=== PATIENT | female | born 1970 | race African-American/Black ===

== ENCOUNTER 2017-05-08 05:06 | Inpatient (IN) | payer OTHER ==
[~2017-05-08] VITALS: Ht 149.9 cm; Wt 59.0 kg
[2017-05-08 06:05] LABS: Eosinophils # (auto) 0.1 uL; Eosinophils % (auto) 1.1 % (0.0-7.0); Lymphocytes # (auto) 1.1 uL; Lymphocytes % (auto) 12.1 % (10.0-50.0); Monocytes # (auto) 0.6 uL; Neutrophils # (auto) 6.9 uL; White Blood Cell 8.7 10^3/uL (4.4-10.8)
[2017-05-08 06:08] LABS: Basophils # (auto) 0.1 uL; Basophils % (auto) 0.7 % (0.0-2.0); Hematocrit 34.7 % (36.0-46.0); Mean Corpuscular Hgb Conc. 31.8 g/dL (32.0-36.0); Mean Corpuscular Volume 81.9 fL (80.0-100.0); Monocytes % (auto) 7.3 % (0.0-12.0); Neutrophils % (auto) 78.8 % (37.0-80.0); Platelet Count (auto) 287 10^3/uL (140-450); Red Blood Cells 4.24 10^6/uL (4.0-5.20); Red Cell Distribution Width 15.7 % (11.8-14.3)
[2017-05-08 06:24] LABS: Alanine Aminotransferase 30 U/L (13-56); Albumin 3.3 g/dL (3.4-5.0); Anion Gap 7 (5-15); Aspartate Aminotransferase 18 U/L (15-37); BUN/Creatinine Ratio 18.1; Blood Alcohol < 3.0 mg/dL (0-5); Blood Urea Nitrogen 21 mg/dL (7-18); Calcium 8.4 mg/dL (8.5-10.1); Carbon Dioxide 25 mmol/L (21-32); Chloride 105 mmol/L (98-107); GFR African American 64 mL/min; GFR Non-African American 53 mL/min; Glucose 98 mg/dL (74-106); Potassium 3.5 mmol/L (3.5-5.1); Sodium 137 mmol/L (136-145)
[2017-05-08 06:29] LABS: Alkaline Phosphatase 78 U/L (45-117); Bilirubin, Total 0.1 mg/dL (0.2-1.0); Total Protein 6.7 g/dL (6.4-8.2)
[2017-05-08 07:26] LABS: Alcohol, Urine < 3.0 mg/dL (0-5); Amphetamine Screen, Urine NEGATIVE (NEGATIVE); Barbiturate Scree,Urine NEGATIVE (NEGATIVE); Benzodiazephine Screen, Urine NEGATIVE (NEGATIVE); Cannabinoid Screen, Urine NEGATIVE (NEGATIVE); Cocaine Screen, Urine POSITIVE (NEGATIVE); Opiate Scree,Urine NEGATIVE (NEGATIVE); Phencyclidine Screen, Urine NEGATIVE (NEGATIVE)
[2017-05-08 07:33] LABS: Urine Bacteria None Seen /hpf (None Seen); Urine WBC None Seen /hpf (0 - 5)
[2017-05-08 08:16] LABS: Urine Specific Gravity 1.012 (1.001-1.035)
[2017-05-08 08:17] LABS: Urine Blood Normal /uL (Negative)
[2017-05-08] MEDS ORDERED: LABETALOL HCL 5 MG/ML ML 20ML VIAL IV PRN (09:30)
[2017-05-08] MEDS ORDERED: NITROGLYCERIN 0.4 MG SL TAB SL PRN (09:30)
[2017-05-08] MEDS ORDERED: MORPHINE SULF INJ 2 MG/ML SYRINGE 1ML IV PRN ×2 (09:30)
[2017-05-08] MEDS ORDERED: LORazepam 2MG/ML-1ML VIAL IV PRN (09:30)
[2017-05-08] MEDS ORDERED: ONDANSETRON HCL 4 MG/2 ML VIAL IV PRN (09:30)
[2017-05-08] MEDS ORDERED: MORPHINE SULFATE 10 MG/ML INJ 1ML SDV IV PRN (09:45)
[2017-05-08] MEDS: ASPirin 81 mg TAB PO SCH (10:24)
[2017-05-08] MEDS: METOPROLOL TARTRATE 25 MG TAB PO SCH ×2 (10:24→21:46)
[2017-05-08] MEDS: amLODIPine BESYLATE 5 MG TAB PO SCH (10:28)
[2017-05-08] MEDS: NITROGLYCERIN 0.2MG/HR TOPICAL PATCH TD SCH (10:28)
[2017-05-08] MEDS: ATORVASTATIN 20 MG TAB PO SCH (21:46)
[2017-05-08 22:00] VITALS: BP 146/71
[2017-05-09 05:00] VITALS: BP 141/74
[2017-05-09 05:54] LABS: Basophils # (auto) 0 uL; Eosinophils # (auto) 0.1 uL; Lymphocytes # (auto) 1.6 uL; Lymphocytes % (auto) 18.4 % (10.0-50.0)
[2017-05-09 05:57] LABS: Basophils % (auto) 0.5 % (0.0-2.0); Eosinophils % (auto) 1.1 % (0.0-7.0); Hematocrit 33.9 % (36.0-46.0); Hemoglobin 10.7 g/dL (12.2-16.2); Mean Corpuscular Hemoglobin 25.8 pg (28.0-32.0); Mean Corpuscular Hgb Conc. 31.6 g/dL (32.0-36.0); Mean Corpuscular Volume 81.7 fL (80.0-100.0); Monocytes # (auto) 0.7 uL; Monocytes % (auto) 8.5 % (0.0-12.0); Neutrophils # (auto) 6.1 uL; Neutrophils % (auto) 71.5 % (37.0-80.0); Nucleated Red Blood Cells % 0.1 %; Platelet Count (auto) 279 10^3/uL (140-450); Red Blood Cells 4.15 10^6/uL (4.0-5.20); Red Cell Distribution Width 15.7 % (11.8-14.3); White Blood Cell 8.5 10^3/uL (4.4-10.8)
[2017-05-09 06:23] LABS: BUN/Creatinine Ratio 18.8; Calcium 8.5 mg/dL (8.5-10.1); Potassium 3.8 mmol/L (3.5-5.1)
[2017-05-09] MEDS: HYDROcodone-ACET 5/325MG TAB PO PRN ×2 (07:56→16:29)
[2017-05-09 08:00] VITALS: BP 140/86
[2017-05-09] MEDS ORDERED: ADENOSINE 50 MG in GIVE UN-DILUTED 0 ML IV ONE (08:45)
[2017-05-09 09:00] VITALS: BP 140/86
[2017-05-09 09:47] VITALS: BP 155/90
[2017-05-09] MEDS: NITROGLYCERIN 0.2MG/HR TOPICAL PATCH TD SCH (10:00)
[2017-05-09] MEDS: ASPirin 81 mg TAB PO SCH (11:17)
[2017-05-09] MEDS: METOPROLOL TARTRATE 25 MG TAB PO SCH ×2 (11:18→22:07)
[2017-05-09] MEDS: amLODIPine BESYLATE 5 MG TAB PO SCH (11:19)
[2017-05-09 13:00] VITALS: BP 186/95
[2017-05-09] MEDS ORDERED: MET25T (14:13)
[2017-05-09 17:00] VITALS: BP 149/74
[2017-05-09] MEDS: ATORVASTATIN 20 MG TAB PO SCH (22:08)
[2017-05-10 00:18] VITALS: BP 136/66
[2017-05-10 05:00] VITALS: BP 148/87
[2017-05-10 06:33] LABS: Basophils # (auto) 0 uL; Basophils % (auto) 0.6 % (0.0-2.0); Eosinophils # (auto) 0.1 uL; Hematocrit 33.8 % (36.0-46.0); Hemoglobin 10.7 g/dL (12.2-16.2); Lymphocytes # (auto) 1.9 uL; Lymphocytes % (auto) 28.1 % (10.0-50.0); Mean Corpuscular Hemoglobin 26.1 pg (28.0-32.0); Mean Corpuscular Hgb Conc. 31.7 g/dL (32.0-36.0); Mean Corpuscular Volume 82.4 fL (80.0-100.0); Monocytes # (auto) 0.6 uL; Monocytes % (auto) 9.2 % (0.0-12.0); Neutrophils % (auto) 60.1 % (37.0-80.0); Platelet Count (auto) 266 10^3/uL (140-450); Red Blood Cells 4.11 10^6/uL (4.0-5.20); Red Cell Distribution Width 15.7 % (11.8-14.3); White Blood Cell 6.7 10^3/uL (4.4-10.8)
[2017-05-10 07:21] LABS: Albumin 3.1 g/dL (3.4-5.0); Bilirubin, Total 0.3 mg/dL (0.2-1.0); Calcium 8.2 mg/dL (8.5-10.1); Potassium 4.3 mmol/L (3.5-5.1); Total Protein 6.5 g/dL (6.4-8.2)
[2017-05-10 08:00] VITALS: BP 153/79
[2017-05-10 08:36] VITALS: BP 153/79
[2017-05-10] MEDS: ASPirin 81 mg TAB PO SCH (09:20)
[2017-05-10] MEDS: METOPROLOL TARTRATE 25 MG TAB PO SCH (09:20)
[2017-05-10] MEDS: NITROGLYCERIN 0.2MG/HR TOPICAL PATCH TD SCH (09:21)
[2017-05-10] MEDS: amLODIPine BESYLATE 5 MG TAB PO SCH (09:21)
[2017-05-10] MEDS: HYDROcodone-ACET 5/325MG TAB PO PRN (09:26)
[2017-05-10 10:02] VITALS: BP 153/79
[2017-05-10] MEDS ORDERED: BOOST PLUS 8 ounce PO SCH (12:00)
== END 2017-05-10 16:50 | disposition home or self-care (01) | DRG 194 ==
LOC: EDBD 05:06 → EDUNIT# 05:06 → ER 05:10 → TELE 05:11 → TELE-WESTW 19:00
PROVIDERS: ADMIT Internal Medicine; ATTEND Internal Medicine
DX: I13.0 Hypertensive heart and chronic kidney disease with heart failure and stage 1 through stage 4 chronic kidney disease, or unspecified chronic kidney disease (principal); I21.4 Non-ST elevation (NSTEMI) myocardial infarction; G92 Toxic encephalopathy; E44.0 Moderate protein-calorie malnutrition; D50.9 Iron deficiency anemia, unspecified; J44.9 Chronic obstructive pulmonary disease, unspecified; D63.1 Anemia in chronic kidney disease; F14.10 Cocaine abuse, uncomplicated; I50.32 Chronic diastolic (congestive) heart failure; N18.2 Chronic kidney disease, stage 2 (mild); F12.90 Cannabis use, unspecified, uncomplicated; F17.210 Nicotine dependence, cigarettes, uncomplicated; Z79.899 Other long term (current) drug therapy; Z90.49 Acquired absence of other specified parts of digestive tract; Z86.73 Personal history of transient ischemic attack (TIA), and cerebral infarction without residual deficits; Z68.26 Body mass index [BMI] 26.0-26.9, adult
CPT/HCPCS: 36415; 70450; 71045; 78452; 80048; 80053; 80061; 80307; 80320; 81001; 82550; 83036; 83735; 84443; 84484; 84702; 85025; 93005; 93017; 93306; 93886; 94761; J0153; J2405